=== PATIENT | female | born 1935 | race Hispanic/Latino ===

== ENCOUNTER 2021-09-05 23:06 | Emergency (ER) | payer MEDICARE, OTHER ==
[~2021-09-05] VITALS: Ht 157.5 cm; Wt 76.7 kg
[~2021-09-05 23:06] MED LIST: ALLEGRA ALLERG180 MG PO; ARTHRITIS PAIN650 M2 PO; ASPIR 8181 MG PO; ATENOLOL100 MG PO; CITRACAL + D M1 EACH PO; FISH OIL 1,0001 EAC2 PO; GEMFIBROZIL600 MG PO; GENERLAC10 GM/15 M PO; HYDROCHLOROTHIA25 MG PO; LASIX20 MG PO; LIPITOR20 MG PO; LOSARTAN-HCTZ1 EAC2 PO; METAMUCIL0.52 GM PO; MOBIC7.5 MG PO; STOOL SOFTENER1 EAC2 PO; TYLENOL EXTRA500 MG PO; VESICARE10 MG PO; VITAMIN D-32000 UNIT PO
[2021-09-05] MEDS ORDERED: CLEOCIN HCL300 MG PO (23:26)
[2021-09-05] MEDS ORDERED: ULTRAM 50MG50 MG PO (23:26)
[2021-09-05] MEDS ORDERED: CIPRO500 MG PO (23:26)
== END 2021-09-05 23:43 | disposition home or self-care (01) ==
LOC: ER 23:21
DX: S81.851A Open bite, right lower leg, initial encounter (principal); W54.0XXA Bitten by dog, initial encounter; Y92.89 Other specified places as the place of occurrence of the external cause; I10 Essential (primary) hypertension; I48.91 Unspecified atrial fibrillation; Z96.653 Presence of artificial knee joint, bilateral
CPT/HCPCS: 99283